=== PATIENT | female | born 1995 | race Caucasian/White ===

== ENCOUNTER 2021-01-24 16:40 | Inpatient (IN) | payer OTHER ==
[~2021-01-24] VITALS: Ht 167.6 cm; Wt 65.8 kg
[2021-01-24] MEDS ORDERED: ZOLOFT100 MG PO (17:07)
[2021-01-24] MEDS ORDERED: ATIVAN0.5 M1 PO (17:07)
[2021-01-24] MEDS ORDERED: SYNTHROID75 MCG PO (17:07)
[2021-01-24] MEDS ORDERED: XANAX XR0.5 MG PO (17:07)
== END 2021-01-27 10:23 | disposition home or self-care (01) | DRG 866 ==
LOC: ER 16:40 → MEDJ 19:55 → MEDI 19:55 → SEC-K 19:55 → MEDI 23:48 → MEDJ 01-25 13:17
PROVIDERS: ADMIT Internal Medicine; ATTEND Internal Medicine
PROC: BW40ZZZ Ultrasonography of Abdomen (ICD-10-PCS; principal; 2021-01-24)
DX: A90 Dengue fever [classical dengue] (principal); D69.6 Thrombocytopenia, unspecified; D72.819 Decreased white blood cell count, unspecified; R74.01 Elevation of levels of liver transaminase levels; Z20.822 Contact with and (suspected) exposure to COVID-19; E03.8 Other specified hypothyroidism; F32.9 Major depressive disorder, single episode, unspecified